=== PATIENT | female | born 1980 | race Caucasian/White ===

== ENCOUNTER 2022-04-08 07:15 | Observation (INO) | payer MEDICAID ==
[~2022-04-08] VITALS: Ht 175.3 cm; Wt 83.5 kg
[2022-04-08 08:06] VITALS: BP 100/71
[2022-04-08] MEDS ORDERED: LACTATED RINGERS 1,000 ML IV SCH (09:15)
[2022-04-08] MEDS ORDERED: TERBUTALINE 1 MG/ML VIAL SUBQ SCH ×2 (09:15→12:35)
[2022-04-08] MEDS ORDERED: cefTRIAXone 1,000 MG VIAL ONE (09:19)
[2022-04-08] MEDS ORDERED: cefTRIAXone 2,000 MG in DEXTROSE 5% 100 ML IV SCH (09:21)
== END 2022-04-08 16:00 | disposition home or self-care (01) ==
LOC: MLD 07:15
PROVIDERS: ADMIT Obstetrics & Gynecology; ATTEND Obstetrics & Gynecology
DX: O62.9 Abnormality of forces of labor, unspecified (principal); Z3A.39 39 weeks gestation of pregnancy
CPT/HCPCS: 59025; 81000; 96365; 96372; G0378; J0696; J3105; J7120